=== PATIENT | male | born 1945 | race Caucasian/White ===

== ENCOUNTER → 2019-04-21 12:30 | Outpatient (BNVA) | payer MEDICARE, BC, SELFPAY | PROVIDERS: Family Provider Family Medicine; PCP Family Medicine; Visit Provider Nurse Practitioner Family | DX: I10 Essential (primary) hypertension (principal); E55.9 Vitamin D deficiency, unspecified | CPT/HCPCS: 80053; 80061; 82306; 85025 ==

== ENCOUNTER 2020-12-27 06:00 | Outpatient (RCR) | payer MEDICARE, BC, SELFPAY | END 2020-12-29 23:59 | disposition home or self-care (01) | LOC: TPT 06:00 | PROVIDERS: Family Provider Family Medicine; PCP Family Medicine; Referring Provider Nurse Practitioner Family; Visit Provider Nurse Practitioner Family | DX: R29.6 Repeated falls (principal) | CPT/HCPCS: 97110; 97162 ==

== ENCOUNTER 2020-12-30 06:00 | Outpatient (RCR) | payer MEDICARE, BC, SELFPAY | END 2021-01-29 23:59 | disposition home or self-care (01) | LOC: TPT 06:00 | PROVIDERS: PCP Family Medicine; Referring Provider Nurse Practitioner Family; Visit Provider Nurse Practitioner Family | DX: R29.6 Repeated falls (principal) | CPT/HCPCS: 97110 ==

== ENCOUNTER 2021-01-12 10:32 | Outpatient (CLI) | payer MEDICARE, BC, SELFPAY ==
--- NOTE | 2021-01-12 10:40 | CT_ITS ---
WS: [id number] CT HEAD TECHNIQUE: Noncontrast and contrast-enhanced CT of the head. CLINICAL INFORMATION: BALANCE DISORDER COMPARISON: None. DLP: 2116.[address] scans at [facility] use at least one of these dose optimization techniques: automated e xposure control; mA and/or kV adjustment per patient size (includes targeted exams where dose is matc hed to clinical indication); or iterative reconstruction. FINDINGS: No evidence of intracranial hemorrhage or mass effect. Moderate small vessel changes with moderate pa renchymal volume loss. Intracranial vascular calcification. No extra-axial fluid collections. No evid ence of mass or mass effect. No abnormal intracranial enhancement. Paranasal sinuses and mastoid air cells are well aerated. CT/CT head wo/w con [id number] IMPRESSION: 1. No evidence of intracranial hemorrhage or mass effect. 2. No abnormal intracranial enhancement. 3. Moderate small vessel changes with moderate parenchymal volume loss. 4. Intracranial vascular calcification. 5. Paranasal sinuses and mastoid air cells are well aerated. 6. No other significant findings.
[2021-01-12] MEDS: iohexol 300 mg/mL 100 mL Btl IV (10:58)
== END 2021-01-12 10:33 | disposition home or self-care (01) ==
PROVIDERS: PCP Nurse Practitioner Family; Visit Provider Nurse Practitioner Family
DX: R26.89 Other abnormalities of gait and mobility (principal)
CPT/HCPCS: 70470; Q9967

== ENCOUNTER 2021-01-30 06:00 | Outpatient (RCR) | payer MEDICARE, BC, SELFPAY | END 2021-02-28 23:59 | disposition home or self-care (01) | LOC: TPT 06:00 | PROVIDERS: PCP Nurse Practitioner Family; Visit Provider Nurse Practitioner Family | DX: R29.6 Repeated falls (principal) | CPT/HCPCS: 97110; 97164 ==

== ENCOUNTER 2021-03-01 06:00 | Outpatient (RCR) | payer MEDICARE, BC, SELFPAY | END 2021-03-22 23:59 | disposition home or self-care (01) | LOC: TPT 06:00 | PROVIDERS: PCP Nurse Practitioner Family; Visit Provider Nurse Practitioner Family | DX: R29.6 Repeated falls (principal) | CPT/HCPCS: 97110; 97164 ==

== ENCOUNTER 2021-10-11 06:00 | Outpatient (RCR) | payer MEDICARE, SELFPAY | END 2021-10-29 23:59 | disposition home or self-care (01) | LOC: TPT 06:00 | PROVIDERS: PCP Nurse Practitioner Family; Referring Provider Nurse Practitioner Family; Visit Provider Nurse Practitioner Family | DX: R42 Dizziness and giddiness (principal); R26.89 Other abnormalities of gait and mobility | CPT/HCPCS: 97110; 97163 ==

== ENCOUNTER → 2021-10-20 15:09 | Outpatient (BNVA) | payer MEDICARE, BC, SELFPAY | PROVIDERS: PCP Nurse Practitioner Family; Visit Provider Nurse Practitioner Family | DX: I96 Gangrene, not elsewhere classified (principal); L98.492 Non-pressure chronic ulcer of skin of other sites with fat layer exposed | CPT/HCPCS: 11042; 11045; 99203 ==

== ENCOUNTER → 2021-10-27 13:57 | Outpatient (BNVA) | payer MEDICARE, BC, SELFPAY | PROVIDERS: PCP Nurse Practitioner Family; Visit Provider Nurse Practitioner Family | DX: I96 Gangrene, not elsewhere classified (principal); L98.492 Non-pressure chronic ulcer of skin of other sites with fat layer exposed | CPT/HCPCS: 11042 ==

== ENCOUNTER 2021-10-30 06:00 | Outpatient (RCR) | payer MEDICARE, BC, SELFPAY | END 2021-11-29 23:59 | disposition home or self-care (01) | LOC: TPT 06:00 | PROVIDERS: PCP Nurse Practitioner Family; Referring Provider Nurse Practitioner Family; Visit Provider Nurse Practitioner Family | DX: R42 Dizziness and giddiness (principal) | CPT/HCPCS: 97110; 97116 ==

== ENCOUNTER → 2021-11-03 10:27 | Outpatient (BNVA) | payer MEDICARE, SELFPAY | PROVIDERS: PCP Nurse Practitioner Family; Visit Provider Nurse Practitioner Family | DX: I96 Gangrene, not elsewhere classified (principal); L98.492 Non-pressure chronic ulcer of skin of other sites with fat layer exposed | CPT/HCPCS: 11042 ==

== ENCOUNTER → 2021-11-10 09:55 | Outpatient (BNVA) | payer MEDICARE, SELFPAY | PROVIDERS: PCP Nurse Practitioner Family; Visit Provider Nurse Practitioner Family | DX: I96 Gangrene, not elsewhere classified (principal); L98.492 Non-pressure chronic ulcer of skin of other sites with fat layer exposed | CPT/HCPCS: 11042 ==

== ENCOUNTER 2021-11-17 10:08 | Inpatient (IN) | payer MEDICARE, BC, SELFPAY ==
[2021-11-17] VITALS (86 sets, daily range): BP systolic 192–220; BP diastolic 96–122; PULSE 37–76; RESP 12–27; TEMP 36.6–36.9; O2SAT 82–98; BMI 32.1
--- NOTE | 2021-11-17 10:10 | ED_ITS ---
HPI - Weakness General: Chief complaint: Weakness Stated complaint: BRADYCARDIA/ WEAKNESS Time Seen by Provider: 11/17/21 10:09 History of Present Illness: Mr. Hernandez is a 76-year-old gentleman with significant past medical history of hypertension, hyperlipidemia presented to the emergency department due to recurrent falls. He reports onset of symptoms without known specific provoking factor approximately 1 week ago. He notes exertional syncope though this is often not preceded by prodrome. He endorses approximately 40 falls with generalized aches and pains. Overall course of symptoms has worsened. Intensity severe. Denies frequent falls in the past. No other specific changes in health, exacerbating, or alleviating factors identified. Onset (ago): week(s) Duration: progressively worsening Location: generalized Severity: severe Exacerbating factors: exertion Review of Systems General: Reports: 10 or more systems reviewed and unremarkable except in HPI and below PFSH ED PFSH: Medical History (Updated 11/17/21 @ 14:13 by Jovon White MD) Depressed Hyperlipemia Hypertension Hypokalemia Rosacea Seasonal allergies Vitamin D deficiency Surgical History (Updated 11/17/21 @ 14:05 by Jovon White MD) No pertinent past surgical history Family History (Updated 11/17/21 @ 14:05 by Jovon White MD) Other No significant family history Social History (Updated 11/17/21 @ 14:06 by Jovon White MD) Smoking and tobacco status: former smoker Quit status (tobacco): has quit using tobacco Former quit date comment: 40 years ago Alcohol intake: current Alcohol type: hard liquor Lives independently: Yes Household members: none Marital status: Marital status details: recently moved to a group home Physical Exam Const: COMMON NORMALS: alert GENERAL APPEARANCE: cooperative and well developed HENMT: COMMON NORMALS: normocephalic and atraumatic HEAD & SCALP: normocephalic and atraumatic THROAT: posterior oropharynx normal OTHER: No zavala signs or raccoon eyes. No hemotympanum. No otorrhea or rhinorrhea. Jaw alignment normal. Dentition baseline. No obvious bony step-offs. No septal hematoma. No evidence of ocular entrapment. Eye: COMMON NORMALS: conjunctivae normal CONJUNCTIVA: Yes conjunctivae normal SCLERA: sclerae normal Neck/C-Spine: COMMON NORMALS: supple GENERAL: Yes trachea midline Resp: COMMON NORMALS: normal respiratory effort and clear to auscultation bilaterally EFFORT & INSPECTION: Yes able to speak in complete sentences AUSCULTATION: clear to auscultation bilaterally Cardio: RATE: bradycardic RHYTHM: abnormal rhythm irregularly irregular GI: COMMON NORMALS: Soft to palpation PALPATION: Yes Soft to palpation and No Tenderness to palpation present (GI) Extremity: GENERAL: Yes normal exam except as noted and No edema Neuro: COMMON NORMALS: moves all extremities SENSORIUM/ORIENTATION: Yes alert and No Orientation impaired Psych: COMMON NORMALS: mental status grossly normal and Normal thought process present THOUGHT PROCESS: Normal thought process present Course ED course: - Patient was seen and evaluated by me at bedside - Patient placed on cardiac monitors, IV access obtained - Initial evaluation notable for exam as above. Head to toe exam performed. - Labs and xrays personally interpreted by me. EKG shows atrial fibrillation with bradycardia and occasional PVCs, no STEMI. - Labs notable for trace leukocytosis, hemoconcentration. Metabolic panel with some evidence of dehydration. Hypomagnesemia and hypokalemia noted with replenishment ordered. Negative delta troponin. BNP elevated. TSH elevated with normal free T4. No COVID. - Imaging notable for no lobar consolidation or pneumothorax. Head CT with no intracranial hemorrhage or mass. CT neck notable for hairline C2 fracture, patient is neurosensory intact on exam. -Discussed with orthopedic spine physician, patient placed in [place] J collar af ter temporary c-collar - Upon serial reexamination after treatment the patient was similar - Based on patient history, evaluation, and testing as interpreted the most likely cause of the patient's condition is recurrent syncope which may be related to bradycardia - The results of ED evaluation were discussed with the patient including plan for admission due to requirement for level of care not available if discharged to prevent significant worsening/deterioration. - Admitting service was contacted and Dr White with the hospitalist service agreed to admit the patient - Patient was admitted without further deterioration or significant events. Note: Click bubbles or prepopulated cardona in note writing are used for assistance with data collection and billing and are inherently more limited than narrative and other text portions of this note. Please use narrative for additional clini zak history and defer to narrative/free test for any case of contradictory information. If information appears in only free text or click bubble it should be considered present or absent as reported. Please contact note abstract writer for clarifications of clinical information or contradictory information. MDM is a brief summary, contradictory or erroneous seeming information should be clarified and full note should be reviewed. Vital Signs: Vital signs: Vital Signs Temperature 98.3 F 11/19/21 16:45 Pulse Rate 56 L 11/19/21 16:45 Respiratory Rate 9 L 11/19/21 16:45 Blood Pressure 178/109 11/19/21 16:45 Pulse Oximetry 94 11/19/21 16:45 Oxygen Delivery Me thod 11/19/21 15:46 MDM - Weakness Medical Decision Making 76-year-old gentleman presenting with recurrent falls. Exact etiology is somewhat unclear likely related to atrial fibrillation with bradycardia and exertional/positional recurrent syncope. Hairline C2 fracture identified and patient placed in [place] J collar. Admitted for further management. Medical Records I reviewed the patient's medical records. Lab Data I reviewed the patient's lab results. : 11/19/21 04:49 11/19/21 04:49 Radiology Impressions Cervical Spine CT 11/17/21 10:26 IMPRESSION: 1. Apparent transverse hairline fracture the base of the C2 vertebral body. 2. Osteopenia and osteoarthritis ADDENDUM: 11/17/21 1214 Findings were discussed with Houston Martino at 11/17/2021 12:12 PM CDT. Chest X-Ray 11/17/21 10:26 IMPRESSION: 1. No acute findings. 2. Low lung volumes Head CT 11/17/21 10:26 IMPRESSION: 1. No acute intracranial abnormality. 2. Cerebral atrophic changes and ventriculomegaly appropriate for age Chest CTA 11/17/21 14:12 IMPRESSION: 1. Negative for pulmonary embolism. 2. Left lower lobe pleural effusion 3. Multiple subcentimeter mediastinal lymph nodes 4. Otherwise negative examination Laboratory Results WBC 10.2 10^3/uL (4.0-10.0) H 11/17/21 10:28 RBC 4.90 10^6/uL (4.1-5.3) 11/17/21 10:28 Hgb 16.3 g/dL (11.7-16.6) 11/17/21 10:28 Hct 48.7 % (42.0-52.0) 11/17/21 10:28 MCV 99.4 fl (80-94) H 11/17/21 10:28 MCH 33.3 pg (28.0-34.0) 11/17/21 10:28 MCHC 33.5 g/dL (30.0-36.0) 11/17/21 10:28 RDW 14.2 % (12.1-15.1) 11/17/21 10:28 Plt Count 215 10^3/cmm (130-400) 11/17/21 10:28 MPV 10.7 fL (7.4-10.4) H 11/17/21 10:28 Neut % (Auto) 76.7 % 11/17/21 10:28 Lymph % (Auto) 12.1 % 11/17/21 10:28 [place] % (Auto) 8.1 % 11/17/21 10:28 Eos % (Auto) 1.4 % 11/17/21 10:28 Baso % (Auto) 1.5 % 11/17/21 10:28 Neut # (Auto) 7.82 10^3/uL (1.8-7.7) H 11/17/21 10:28 Lymph # (Auto) 1.2 10^3/uL (0.8-4.8) 11/17/21 10:28 [place] # (Auto) 0.8 10^3/uL (0.2-0.9) 11/17/21 10:28 Eos # (Auto) 0.1 10^3/uL (0.0-0.8) 11/17/21 10:28 Baso # (Auto) 0.2 10^3/uL (0.0-0.1) H 11/17/21 10:28 Nucleated RBC % (auto) 0 % 11/17/21 10:28 Nucleated RBCs # 0.0 /100WBC 11/17/21 10:28 D-Dimer 2.20 ug/mIFEU (0-0.59) H 11/17/21 10:28 Sodium 137 mmol/L (136-145) 11/17/21 10:28 Potassium 3.3 mmol/L (3.5-5.1) L 11/17/21 10:28 Chloride 96 mmol/L (98-107) L 11/17/21 10:28 Carbon Dioxide 27 mmol/L (22-29) 11/17/21 10:28 Anion Gap 17.3 (5-19) 11/17/21 10:28 BUN 9 mg/dL (8-23) 11/17/21 10:28 Creatinine 0.7 mg/dL (0.7-1.2) 11/17/21 10:28 GFR Calculation Not Reportable 11/17/21 10:28 Glucose 88 mg/dL (65-115) 11/17/21 10:28 Calculated Osmolality 282 mOsm/kg (285-295) L 11/17/21 10:28 Lactate 1.6 mmol/L (0.5-2.2) 11/17/21 10:28 Calcium 8.8 mg/dL (8.5-10.5) 11/17/21 10:28 Magnesium 1.5 mg/dL (1.7-2.3) L 11/17/21 10:28 Total Bilirubin 1.3 mg/dL (0.15-1.2) H 11/17/21 10:28 AST 22 U/L (0-40) 11/17/21 10:28 ALT 12 U/L (0-41) 11/17/21 10:28 Alkaline Phosphatase 100 U/L (40-130) 11/17/21 10:28 Troponin T Baseline 37 ng/L (0-15) H 11/17/21 10:43 Troponin T 120 Minute 35.05 ng/L (0-15) H 11/17/21 12:38 Delta Troponin T -1.95 ABS# (0-10) L 11/17/21 12:38 Troponin T Hi Sens 6Hr 41.42 ng/L (0-15) H 11/17/21 16:58 Troponin T Hi Sens 6Hr Delta 4.42 ng/L (0-12) 11/17/21 16:58 C-Reactive Protein 8.7 mg/L (0.0-4.9) H 11/17/21 10:28 NT-Pro-B Natriuret Pep 7738 pg/mL (0-450) H 11/17/21 10:28 Total Protein 7.1 g/dL (6.6-8.7) 11/17/21 10:28 Albumin 3.5 g/dL (3.5-5.2) 11/17/21 10:28 Globulin 3.6 g/dL (1.3-4.6) 11/17/21 10:28 Procalcitonin 0.05 ng/mL (0-0.5) 11/17/21 10:28 TSH 4.88 uIU/mL (0.27-4.20) H 11/17/21 10:28 Free T4 0.90 ng/dL (0.82-1.77) 11/17/21 10:28 Discharge Plan Discharge Patient Disposition: Admitted As Inpatient Admit Provider: Jovon White Clinical Impression: Recurrent syncope, Atrial fibrillation, new onset, Bradyarrhythmia, Falls, C2 cervical fracture Condition: Stable Discharge Diet: Cardiac Discharge Activity: As per PT/OT instructions Coding Level of Care Code ED 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
--- NOTE | 2021-11-17 10:26 | CTR_ITS ---
PROCEDURE INFORMATION: Exam: CT Cervical Spine Without Contrast Exam date and time: 11/17/2021 11:32 AM Age: 76 years old Clinical indication: Other: Syncope TECHNIQUE: Imaging protocol: Computed tomography of the cervical spine without contrast. Radiation optimization: All CT scans at this facility use at least one of these dose optimization techniques: automated exposure control; mA and/or kV adjustment per patient size (includes targeted exams where dose is matched to clinical indication); or iterative reconstruction. COMPARISON: CT head wo con* [id number] 11/17/2021 11:29 AM RADIATION DOSE METRICS: Total DLP (mGy-cm): 226.47 FINDINGS: Bones/joints: Osteopenia and osteoarthritis is seen. A linear lucency is seen a traversing the base of the C2 vertebral body on coronal view. This finding is not visible on axial \views. This finding is faintly visible on the sagittal view. This may reflect a hairline fracture of indeterminate age. No acute fracture. Normal alignment. Discs/Spinal canal/Neural foramina: No significant disc protrusion. No severe spinal canal stenosis. No significant neural foraminal narrowing. Lungs: Lung apices are normal. Soft tissues: Unremarkable. CT/CT cervical spin wo con* [id number] IMPRESSION: 1. Apparent transverse hairline fracture the base of the C2 vertebral body. 2. Osteopenia and osteoarthritis
--- NOTE | 2021-11-17 10:26 | XRR_ITS ---
PROCEDURE INFORMATION: Exam: XR Chest Exam date and time: 11/17/2021 10:34 AM Age: 76 years old Clinical indication: Patient HX: Coughing x 1 week; Additional info: Syncope, bradycardia TECHNIQUE: Imaging protocol: Radiologic exam of the chest. Views: 1 view. COMPARISON: CR Chest 2 views* [id number] 08/23/2017 3:29 PM FINDINGS: Lungs: Low lung volumes seen. The lungs are otherwise clear. No consolidation. Pleural spaces: Elevated right hemidiaphragm No pleural effusion. No pneumothorax. Heart/Mediastinum: Unremarkable. No cardiomegaly. Bones/joints: Unremarkable. Other findings: There has been no interval changes comparing to prior examination XR/XR chest 1V portable [id number] IMPRESSION: 1. No acute findings. 2. Low lung volumes
--- NOTE | 2021-11-17 10:26 | CTR_ITS ---
PROCEDURE INFORMATION: Exam: CT Head Without Contrast Exam date and time: 11/17/2021 11:29 AM Age: 76 years old Clinical indication: Syncope and collapse TECHNIQUE: Imaging protocol: Computed tomography of the head without contrast. Radiation optimization: All CT scans at this facility use at least one of these dose optimization techniques: automated exposure control; mA and/or kV adjustment per patient size (includes targeted exams where dose is matched to clinical indication); or iterative reconstruction. COMPARISON: CT head wo/w con [id number] 01/12/2021 10:55 AM RADIATION DOSE METRICS: Total DLP (mGy-cm): 1139.58 FINDINGS: Brain: Cerebral volume loss appropriate for age. No hemorrhage. Unremarkable white matter. No mass effect. Cerebral ventricles: Moderate ventriculomegaly. Paranasal sinuses: Visualized sinuses are unremarkable. No fluid levels. Mastoid air cells: Visualized mastoid air cells are well aerated. Bones/joints: Unremarkable. No acute fracture. Soft tissues: Unremarkable. Other findings: Comparison to prior examination similar findings seen CT/CT head wo con* [id number] IMPRESSION: 1. No acute intracranial abnormality. 2. Cerebral atrophic changes and ventriculomegaly appropriate for age
--- NOTE | 2021-11-17 10:28 | ECG_ITS ---
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 Measurements Intervals [place] Rate: 48 P: [place]: QRS: -58 QRSD: 134 T: 55 QT: 499 QTc: 449 Interpretive Statements ATRIAL FIBRILLATION WITH SLOW VENTRICULAR RESPONSE WITH ABERRANT CONDUCTION OR VENTRICULAR PREMATURE COMPLEXES RIGHT BUNDLE BRANCH BLOCK [120+ ms QRS DURATION, UPRIGHT V1, 40+ ms S IN I/aVL/V4/V5/V6] VOLTAGE CRITERIA FOR LVH [MEETS CRITERIA IN ONE OF: R(aVL), S(V1), R(V5), R(V5/V6)+S(V1)] INFERIOR MYOCARDIAL INFARCTION , PROBABLY OLD [40+ ms Q WAVE AND/OR ST/T ABNORMALITY IN II/aVF] MODERATE T-WAVE ABNORMALITY, CONSIDER LATERAL ISCHEMIA [-0.1+ mV T-WAVE IN I/aVL/V5/V6] No previous ECG available for comparison Electronically Signed On 11-17-2021 17:46:12 CDT by Kenny Parkinson M.D. [id number]
[2021-11-17 10:37] LABS: Basophils # 0.2 10^3/uL (0.0-0.1); Basophils % 1.5 %; Eosinophils # 0.1 10^3/uL (0.0-0.8); Eosinophils % 1.4 %; Hematocrit 48.7 % (42.0-52.0); Hemoglobin 16.3 g/dL (11.7-16.6); Lymphocytes # 1.2 10^3/uL (0.8-4.8); Lymphocytes % 12.1 %; Mean Corpuscular HGB Conc 33.5 g/dL (30.0-36.0); Mean Corpuscular Hemoglobin 33.3 pg (28.0-34.0); Mean Corpuscular Volume 99.4 fl (80-94); Mean Platelet Volume 10.7 fL (7.4-10.4); Monocytes # 0.8 10^3/uL (0.2-0.9); Monocytes % 8.1 %; Neutrophils # 7.82 10^3/uL (1.8-7.7); Neutrophils % 76.7 %; Nucleated Red Blood Cells % 0 %; Platelet Count 215 10^3/cmm (130-400); Red Cell Distribution Width 14.2 % (12.1-15.1); White Blood Count 10.2 10^3/uL (4.0-10.0)
[2021-11-17 10:54] LABS: Lactate (Lactic Acid level) 1.6 mmol/L (0.5-2.2)
[2021-11-17 11:10] LABS: Troponin(5th) Baseline 37 ng/L (0-15)
[2021-11-17 11:18] LABS: NT Pro B Type Natriuretic Pept 7738 pg/mL (0-450); Procalcitonin 0.05 ng/mL (0-0.5); Thyroid Stimulating Hormone 4.88 uIU/mL (0.27-4.20)
[2021-11-17 11:29] LABS: Alanine Aminotransferase 12 U/L (0-41); Albumin Level 3.5 g/dL (3.5-5.2); Alkaline Phosphatase 100 U/L (40-130); Blood Urea Nitrogen 9 mg/dL (8-23); C Reactive Protein 8.7 mg/L (0.0-4.9); Calcium 8.8 mg/dL (8.5-10.5); Carbon Dioxide 27 mmol/L (22-29); Chloride 96 mmol/L (98-107); Globulin 3.6 g/dL (1.3-4.6); Glucose 88 mg/dL (65-115); Magnesium 1.5 mg/dL (1.7-2.3); Osmolality Calculated 282 mOsm/kg (285-295); Sodium 137 mmol/L (136-145); Total Bilirubin 1.3 mg/dL (0.15-1.2); Total Protein 7.1 g/dL (6.6-8.7)
[2021-11-17 11:31] LABS: Anion Gap 17.3 (5-19); Aspartate Amino Transferase 22 U/L (0-40); Potassium 3.3 mmol/L (3.5-5.1)
--- NOTE | 2021-11-17 12:36 | ECG_ITS ---
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 Measurements Intervals [place] Rate: 44 P: SD: QRS: -60 QRSD: 158 T: 44 QT: 516 QTc: 443 Interpretive Statements ATRIAL FIBRILLATION WITH SLOW VENTRICULAR RESPONSE RIGHT BUNDLE BRANCH BLOCK [120+ ms QRS DURATION, UPRIGHT V1, 40+ ms S IN I/aVL/V4/V5/V6] LEFT ANTERIOR FASCICULAR BLOCK [QRS AXIS <= -45, QR IN I, RS IN II] VOLTAGE CRITERIA FOR LVH [MEETS CRITERIA IN ONE OF: R(aVL), S(V1), R(V5), R(V5/V6)+S(V1)] INFERIOR MYOCARDIAL INFARCTION , PROBABLY OLD [40+ ms Q WAVE AND/OR ST/T ABNORMALITY IN II/aVF] Compared to ECG 11/17/2021 10:17:16 Left anterior fascicular block now present Aberrant conduction of supraventricular beat(s) no longer present Ventricular premature complex(es) no longer present T-wave abnormality no longer present Possible ischemia no longer present Myocardial infarct finding still present Electronically Signed On 11-17-2021 17:49:35 CDT by Kenny Parkinson M.D. [id number]
--- NOTE | 2021-11-17 12:38 | PC.PHAR ---
pt states he takes care of his own medications-pt states he is unsure of the names of all his medications-pt states he takes a fluid pill rx filled 07/13/2020 90d/s for indapamide 2.5mg qam-medication is not on med list from [facility] -pt states he uses flonase daily rx last filled 08/08/21-labetalol 300mg daily last filled 08/01/21 90d/s-lisinopril 10mg qam filled 10/23/21 30d/s-montelukast 10mg daily filled 09/11/21 90d/s-kcl 20meq take 10meq daily filled 09/13/21 30d/s-simvastatin 40mg daily filled 07/26/21 90d/s-venlafaxine er 75mg daily filled 10/23/21 90d/s-flexeril 5mg bid prn filled 10/10/21 10d/s-clartin 10mg daily was on pts med list from [facility]-med list from [facility] has vitamin d 54866 units q7d pt states he doesnt take a weekly pill-pt states he takes 8 pill a day-medications entered are meds that have been filled at [facility] and medications on the pts med list from [facility]
[2021-11-17] MEDS: magnesium sulfate premix 4 GM/100 ML PREMIX IV (13:14)
[2021-11-17] MEDS: potassium chloride ER 20 mEq Tablet 40 MEQ PO (13:14)
[2021-11-17 13:17] LABS: Troponin 5 2HR 35.05 ng/L (0-15)
[2021-11-17 13:18] LABS: Troponin 5 2HR Delta -1.95 ABS# (0-10)
--- NOTE | 2021-11-17 13:53 | USCV_ITS ---
Amos Hernandez Age: 76 Gender: M : 1945 Exam Date: 11/17/2021 14:33 Ordering Phys: Jovon White MD Technologist: AMANDA Exam Location: [facility] [place] Indication: SYNCOPE, BRADYCARDIA BP: / HR: 40 Rhythm: Sinus Technical Quality: Technically difficult study MEASUREMENTS (Male / Female) Normal Values 2D ECHO LV Diastolic Diameter PLAX 5.7 cm 4.2 - 5.9 / 3.9 - 5.3 cm LV Systolic Diameter PLAX 4.0 cm IVS Diastolic Thickness 1.3 cm 0.6 - 1.0 / 0.6 - 0.9 cm IVS Systolic Thickness 2.6 cm LVPW Diastolic Thickness 1.9 cm 0.6 - 1.0 / 0.6 - 0.9 cm LVPW Systolic Thickness 2.3 cm LVOT Diameter 2.0 cm LV Ejection Fraction 2D Teich 54.5 % LV Ejection Fraction MOD 2C 40.6 % LV Ejection Fraction 2C AL 41.0 % LA Diameter 4.6 cm LA Width 3.4 cm LA Height 6.5 cm RA Width 4.4 cm RA Height 4.9 cm Aorta at Sinotubular Diameter 2.8 cm M-MODE Aortic Annulus Diameter 4.2 cm LA Ao Ratio MM 1.0 MV E Point Septal Separation 0.9 cm DOPPLER AV Peak Velocity 179.0 cm/s LVOT Peak Velocity 100.0 cm/s AV Area Cont Eq vti 1.8 cm squared AV Area Cont Eq pk 1.7 cm squared MV Peak Velocity 92.0 cm/s MV Area PHT 3.6 cm squared Mitral E to A Ratio 1.1 MV E' Velocity 36.5 cm/s Mitral E to MV E' Ratio 6.5 Mitral E to LV E' Lateral Ratio 5.5 Mitral E to LV E' Septal Ratio 8.0 TR Peak Velocity 221.2 cm/s TR Peak Gradient 19.6 mmHg TR Mean Velocity 232.1 cm/s TR Mean Gradient 21.3 mmHg TR Velocity Time Integral 87.0 cm TV Peak E Velocity 35.0 cm/s Right Atrial Pressure 8.0 mmHg Pulmonary Artery Systolic Pressu 27.6 mmHg PV Peak Velocity 153.0 cm/s RV Acceleration Time 0.2 s RV Ejection Time 0.3 s RV AcT/ET 0.5 FINDINGS Left Ventricle Normal left ventricular size, systolic function and wall thickness, with no diagnostic regional wall motion abnormalities. Left ventricular ejection fraction is estimated at 55 %. Right Ventricle Normal right ventricular size and systolic function. Right ventricular systolic pressure 21 mmHg. Right Atrium Normal right atrial size. Left Atrium Normal left atrial size. Mitral Valve Structurally normal mitral valve. No mitral valve stenosis. No significant mitral valve regurgitation. Aortic Valve Structurally normal trileaflet aortic valve. No aortic valve stenosis. Trace aortic valve regurgitation. Tricuspid Valve Structurally normal tricuspid valve. No tricuspid valve stenosis. Trace tricuspid valve regurgitation. Pulmonic Valve Pulmonic valve not well visualized. No pulmonary valve stenosis. Trace pulmonary valve regurgitation. Pericardium No pericardial effusion. Aorta Normal sized aortic root. IVC Inferior vena cava not visualized. CONCLUSIONS 1. This is a technically difficult study. 2. Normal left ventricular size, systolic function and wall thickness, with no diagnostic regional wall motion abnormalities. Left ventricular ejection fraction is estimated at 55 %. 3. Trace aortic valve regurgitation. 4. No prior similar studies to compare. Karla Singleton MD (Electronically Signed) Final Date: 17 November 2021 18:26 S
--- NOTE | 2021-11-17 14:02 | P.HP_ITS ---
Providers/Chief Complaint Primary Care Provider: Vernell Siegel APN Chief Complaint: BRADYCARDIA/ WEAKNESS History of Present Illness Pleasant 76-year-old gentleman recently living alone after his has moved to residential, with history of HTN, HLD, alcohol intake 2-3 drinks in a day, reports history of intermittent fainting episodes for close to about a year, but recently worse, has been generally weak, and has fainted possibly 8-9 times, but feels like 49 in the last year. His son mentions that episodes may happen more often at night when he tries to get up from bed possibly to urinate. He does state that he gets lightheaded trying to get up. He denies any chest pain or pressure. He is not short of breath. He has not had any fevers chills, cough or other respiratory issues. Denies any history of heart disease, including no history of atrial fibrillation, or known history of CAD. He was a former smoker but quit 40 years ago. Denies any recent tick bites or any other unusual incidents. In ER he is noted hypertensive, blood pressure up to 214/122, currently 207/101. Noted bradycardic, heart rates occasionally as low as 35-39 bpm at rest, otherwise 40s-50s. Noted atrial fibrillation with slow ventricular response on EKG. Aberrant conduction. LVH. Potassium 3.3. Magnesium 1.5. TSH 4.88, but free T4 0.9. Troponin 37 baseline, 35.05 at 2 hours. NT proBNP 7738. Chest x- ray with low lung volumes, no acute findings. Head CT with atrophic changes and ventriculomegaly appropriate for age. C-spine CT with transverse hairline fracture at the base of the C2 vertebral body. As per discussion with orthopedics [place] collar is placed, and he will be following up in outpatient office. Review of Systems Const: Denies: fever(s), chills, body aches or malaise Eyes: Denies: change in vision, eye discomfort or eye redness ENMT: Denies: throat pain, oral sores or ear or mastoid pain Card: Denies: chest pain, edema, pre-syncope or dyspnea on exertion Resp: Denies: dyspnea, productive cough, change in phlegm color or hemoptysis GI: Denies: abdominal pain, nausea, vomiting, diarrhea, constipation, hematochezia or melena : Denies: flank pain, difficulty urinating, urinary frequency or hematuria Musc: Denies: back pain, joint swelling or joint redness Skin/Breast: Denies: rash or new lesions Neuro: Denies: headache(s), numbness in extremities, weakness in extremities, dizziness, confusion or seizure-like activity Endo: Denies: polyuria or polydipsia [place]/Lymph: Denies: easy bleeding or tender lymph nodes All/Imm: Denies: urticaria or tongue swelling Medications/Allergies Home Medications Medication Instructions Recorded Confirmed Last Taken Type labetalol 300 mg tablet 300 mg PO DAILY 90 days #90 tabs 04/27/19 11/17/21 Unknown Rx cyclobenzaprine 5 mg tablet 5 mg PO BID PRN Muscle Spasm 11/17/21 11/17/21 Unknown History fluticasone propionate 50 2 spray intranasal DAILY 11/17/21 11/17/21 Unknown History mcg/actuation nasal spray,suspension indapamide 2.5 mg tablet 2.5 mg PO QAM 11/17/21 11/17/21 Unknown History lisinopril 10 mg tablet 10 mg PO DAILY 11/17/21 11/17/21 Unknown History loratadine 10 mg tablet (Claritin) 10 mg PO DAILY 11/17/21 11/17/21 Unknown History montelukast 10 mg tablet 10 mg PO DAILY 11/17/21 11/17/21 Unknown History potassium chloride 20 mEq 10 meq PO DAILY 11/17/21 11/17/21 Unknown History tablet,extended release(part/cryst) (Klor-Con M) simvastatin 40 mg tablet (Zocor) 40 mg PO DAILY 11/17/21 11/17/21 Unknown History venlafaxine 75 mg capsule,extended 75 mg PO DAILY 11/17/21 11/17/21 Unknown H istory release 24 hr Allergies Allergy/AdvReac Type Severity Reaction Status Date / Time No Known Allergies Allergy Verified 04/21/19 12:26 PFSH Acute PFSH: Medical History (Updated 11/17/21 @ 14:13 by Jovon White MD) Depressed Hyperlipemia Hypertension Hypokalemia Rosacea Seasonal allergies Vitamin D deficiency Surgical History (Updated 11/17/21 @ 14:05 by Jovon White MD) No pertinent past surgical history Family History (Updated 11/17/21 @ 14:05 by Jovon White MD) Other No significant family history Social History (Updated 11/17/21 @ 14:06 by Jovon White MD) Smoking and tobacco status: former smoker Quit status (tobacco): has quit using tobacco Former quit date comment: 40 years ago Alcohol intake: current Alcohol type: hard liquor Alcohol use comment: 2-3 drinks/ day Substance/Drug Use: never Lives independently: Yes Household members: none Marital status: Marital status details: recently moved to a residential Vitals/I&O/Wt Last Vital Signs Temp 97.9 F 11/17/21 10:13 Pulse 76 11/17/21 13:55 Resp 21 H 11/17/21 13:55 BP 207/101 11/17/21 13:34 Pulse Ox 82 L 11/17/21 13:55 O2 Del Method 11/17/21 10:25 Weight last 48 hrs Weight 104.326 kg Physical Exam Narrative: Son accompanies him at bedside. Const: COMMON NORMALS: patient oriented x3 and alert GENERAL APPEARANCE: cooperative ORIENTATION/CONSCIOUSNESS: Yes awake HENMT: COMMON NORMALS: oropharynx normal Neck/C-Spine: COMMON NORMALS: no JVD OTHER: [place] collar Resp: COMMON NORMALS: normal respiratory effort and clear to auscultation bilaterally AUSCULTATION: clear to auscultation bilaterally Cardio: COMMON NORMALS: no JVD, regular rhythm, S1 normal heart sound present, S2 normal heart sound present and No murmurs present (Cardio) RHYTHM: regular rhythm HEART SOUNDS: S1 normal heart sound present and S2 normal heart sound present GI: COMMON NORMALS: Normal to inspection, nondistended, normoactive bowel sounds present, Soft to palpation and non-tender PALPATION: Yes Soft to palpation Extremity: COMMON NORMALS: no joint enlargement and no pedal edema Neuro: COMMON NORMALS: patient oriented x3 and moves all extremities SENSORIUM/ORIENTATION: Yes alert Skin: COMMON NORMALS: no rashes or lesions noted GENERAL SKIN EXAM: no rashes or lesions noted OTHER: Seborrheic keratoses Data : 11/17/21 10:28 11/17/21 10:28 A&P Assessment and plan (1) Recurrent syncope: Recurrent syncopal episodes, etiology of which is not entirely clear currently. He is noted to have bradycardia, RBBB, LAF, although heart rates mostly do stay in 4750s, but occasionally do drop down to 35-39. He does report some orthostatic symptoms with getting up, episodes also to appear to happen more at night. Noted to have new atrial fibrillation. Denies known past cardiac history. Additional assessment and management with TTE and as below. Orthostatics. Status: Acute (2) Atrial fibrillation with slow ventricular response: Bradycardia, occasionally as low as 35-39. Mostly 40s-50s. Hold labetalol. Received replacement for hypokalemia, hypomagnesemia. We will follow-up and replace as needed. Noted mild increase in TSH, but normal free T4. Not likely contributing, likely subclinical hypothyroidism. Complete troponin EKG series. He has been chest pain-free, although new onset atrial fibrillation, with cardiovascular risk factors, no prior work-up, will benefit from additional assessment by stress testing at some point. TTE. He is hypertensive, although this may be in response to bradycardia as discussed with him and his son. D-dimer is noted abnormal, with syncopal episodes will additionally assess CT PE protocol. Status: Acute (3) Atrial fibrillation, new onset: As above. Alcohol could be a trigger. As noted above, with new onset, with cardiovascular risk factors, no prior CAD work-up would benefit from additional nonurgent stress testing. Status: Acute (4) Falls: Accompanying syncopal episodes. As above. Status: Acute (5) C2 cervical fracture: [place] collar. Follow-up with orthopedics and office. Status: Acute (6) Hypertension: Labetalol was stopped. Continue lisinopril, indapamide. Cardiac diet monitor blood pressures. Status: Acute (7) Hypokalemia: Received replacement. Follow-up level. Replace hypomagnesemia. Status: Acute (8) Hypomagnesemia: Received replacement. Follow-up level. Status: Acute (9) Elevated TSH: He denies any other symptoms of hypothyroidism. Suspect subclinical hypothyroid. Not likely to be contributing to his symptoms. Status: Acute (10) Alcohol use: 2-3 alcoholic drinks daily, hard liquor. Certainly could contribute to development of new atrial relation. Encourage cessation. Monitor for withdrawal. Status: Acute (11) Elevated brain natriuretic peptide (BNP) level: 7738. Unclear etiology, although does not appear to have clear pulmonary issues on chest x-ray. D-dimer is abnormal, will additionally assess for possibility of PE with CTA. This may be secondary to new arrhythmia. Does not appear to be volume overloaded at this time. Assess TTE. Status: Acute (12) Elevated d-dimer: Additional assessment by CTA, duplex lower extremities. If no clots noted, may be secondary to atrial fibrillation. Status: Acute Plan HLD: Continue statin Possible nycturia as per son recently moved to [place], now living alone. Attestations Medical Necessity Statement*: Admission of over 2 midnights anticipated versus management of syncopal episodes, new atrial fibrillation, bradycardia. Coding Level of Care Code Acute Striper Machine for Jimmy Fwd Diagnoses Recurrent syncope R55 Atrial fibrillation with slow ventricular response I48.91 Atrial fibrillation, new onset I48.91 Falls W19.XXXA C2 cervical fracture S12.100A Hypertension I10 Hypokalemia E87.6 Hypomagnesemia E83.42 Elevated TSH R79.89 Alcohol use Z72.89 Elevated brain natriuretic peptide (BNP) level R79.89 Elevated d-dimer R79.89
--- NOTE | 2021-11-17 14:12 | USCV_ITS ---
Amos Hernandez Age: 76 Gender: M : 1945 Exam Date: 11/17/2021 14:20 Ordering Phys: Jovon White MD Technologist: AMANDA Exam Location: [facility] [place] Indication: ELEVATED D DIMER PROCEDURES: Venous duplex imaging was performed in bilateral lower extremities. The following venous structures were evaluated: common femoral vein, profunda vein, proximal portion of the greater saphenous vein, superficial femoral vein, and the popliteal vein. In addition, the posterior tibial and peroneal trunk were evaluated. Serial compression, augmentation maneuvers, and spectral Doppler flow evaluation were performed. FINDINGS: No evidence of DVT seen in any vessel visualized at this time. Examination was technically limited due to body habitus. CONCLUSIONS No evidence of right lower extremity DVT. No evidence of left lower extremity DVT. Vick Dhillon MD (Electronically Signed) Final Date: 17 November 2021 15:19 S
--- NOTE | 2021-11-17 14:12 | CTR_ITS ---
PROCEDURE INFORMATION: Exam: CTA Chest With Contrast Exam date and time: 11/17/2021 4:26 PM Age: 76 years old Clinical indication: Dyspnea; Additional info: Syncope, elev ddimer TECHNIQUE: Imaging protocol: Computed tomographic angiography of the chest with contrast. 3D rendering (Not supervised by radiologist): MIP and/or 3D reconstructed images were created by the technologist. Radiation optimization: All CT scans at this facility use at least one of these dose optimization techniques: automated exposure control; mA and/or kV adjustment per patient size (includes targeted exams where dose is matched to clinical indication); or iterative reconstruction. Contrast material: OMNI 350; Contrast volume: 95 ml; Contrast route: INTRAVENOUS (IV); COMPARISON: CR XR chest 1V portable [id number] 11/17/2021 10:34 AM RADIATION DOSE METRICS: Total DLP (mGy-cm): 522.27 FINDINGS: Pulmonary arteries: Normal. No pulmonary emboli. Aorta: Unremarkable. No aortic aneurysm. No aortic dissection. Lungs: Unremarkable. No consolidation. No masses. Pleural spaces: Unremarkable. No pneumothorax. Left lower lobe pleural effusion. Heart: Unremarkable. No cardiomegaly. No pericardial effusion. Lymph nodes: Subcentimeter mediastinal lymph nodes are seen.. Bones/joints: Unremarkable. No acute fracture. Soft tissues: Unremarkable. CT/CT angio chest PE protcl [id number] IMPRESSION: 1. Negative for pulmonary embolism. 2. Left lower lobe pleural effusion 3. Multiple subcentimeter mediastinal lymph nodes 4. Otherwise negative examination
[2021-11-17] MEDS: perflutren protein-a microsphr 0.22 mg/mL SDV 3 mL IV (15:16)
--- NOTE | 2021-11-17 16:37 | ECG_ITS ---
[facility] Test Date: 2021-11-17 Pat Name: Amos Hernandez Department: Room: Gender: Male Secretary Specialist: : 1945 Requested By: Houston Martino Order Number: [id number] Kwame MD: Kenny Parkinson M.D. Measurements Intervals [place] Rate: 51 P: MI: QRS: -53 QRSD: 144 T: 9 QT: 503 QTc: 467 Interpretive Statements ATRIAL FIBRILLATION WITH SLOW VENTRICULAR RESPONSE WITH ABERRANT CONDUCTION OR VENTRICULAR PREMATURE COMPLEXES RIGHT BUNDLE BRANCH BLOCK [120+ ms QRS DURATION, UPRIGHT V1, 40+ ms S IN I/aVL/V4/V5/V6] VOLTAGE CRITERIA FOR LVH [MEETS CRITERIA IN ONE OF: R(aVL), S(V1), R(V5), R(V5/V6)+S(V1)] INFERIOR MYOCARDIAL INFARCTION , OF INDETERMINATE AGE [40+ ms Q WAVE AND/OR ST/T ABNORMALITY IN II/aVF] Compared to ECG 11/17/2021 12:36:00 Ventricular premature complex(es) now present Aberrant conduction of supraventricular beat(s) now present Left anterior fascicular block no longer present Myocardial infarct finding still present Electronically Signed On 11-17-2021 17:48:46 CDT by Kenny Parkinson M.D. [id number]
[2021-11-17] MEDS: iohexol 350 mg/mL 100 mL Btl IV (16:38)
[2021-11-17] MEDS: hyDRALAzine 20 mg/mL INJ 1 mL 10 MG IVP ×2 (17:18→22:18)
[2021-11-17 17:27] LABS: Troponin 5 6HR 41.42 ng/L (0-15)
[2021-11-17 17:29] LABS: Troponin 5 6HR Delta 4.42 ng/L (0-12)
[2021-11-17] MEDS: heparin 5,000 unit/mL INJ 1 mL 5000 UNIT SUBCUT (19:56)
[2021-11-17 21:50] LABS: Adenovirus Not Detected (NOT DETECT); Chlamydia Pneumoniae Not Detected (NOT DETECT); Coronavirus 229E,HKU1,NL63,OC4 Not Detected (NOT DETECT); Human Metapneumovirus Not Detected (NOT DETECT); Human Rhinovirus/Enterovirus Not Detected (NOT DETECT); Influenza A Not Detected (NOT DETECT); Influenza A H1 Not Detected (NOT DETECT); Influenza A H1-2009 Not Detected (NOT DETECT); Influenza A H3 Not Detected (NOT DETECT); Influenza B Not Detected (NOT DETECT); Mycoplasma Pneumoniae Not Detected (NOT DETECT); Parainfluenza Virus Type 1 Not Detected (NOT DETECT); Parainfluenza Virus Type 2 Not Detected (NOT DETECT); Parainfluenza Virus Type 3 Not Detected (NOT DETECT); Parainfluenza Virus Type 4 Not Detected (NOT DETECT); Respiratory Syncytial Virus A Not Detected (NOT DETECT); Respiratory Syncytial Virus B Not Detected (NOT DETECT); SARS-COV-2 Not Detected (NOT DETECT)
[2021-11-17] MEDS: cyclobenzaprine 10 mg Tablet 5 MG PO (22:17)
--- NOTE | 2021-11-17 22:27 | PC.NURSE ---
Patient requesting something to help with sleep or remove c-collar. Instructed patient on extreme importance of c-collar. Informed Dr Escalona of patient's request. Received telephone order for hydroxyzine 25mg PO onetime for sleep tonight.
[2021-11-17] MEDS: hyDROXYzine 25 mg Capsule PO (23:02)
[2021-11-18] VITALS (11 sets, daily range): BP systolic 107–220; BP diastolic 71–96; PULSE 48–58; RESP 20–25; TEMP 36.6–36.8; O2SAT 94–96
[2021-11-18 05:14] LABS: Basophils # 0.1 10^3/uL (0.0-0.1); Basophils % 1.1 %; Eosinophils # 0.1 10^3/uL (0.0-0.8); Eosinophils % 1.2 %; Hematocrit 44.6 % (42.0-52.0); Hemoglobin 14.9 g/dL (11.7-16.6); Mean Corpuscular HGB Conc 33.4 g/dL (30.0-36.0); Mean Corpuscular Hemoglobin 33.5 pg (28.0-34.0); Mean Corpuscular Volume 100.2 fl (80-94); Mean Platelet Volume 10.8 fL (7.4-10.4); Monocytes # 0.8 10^3/uL (0.2-0.9); Monocytes % 8.6 %; Neutrophils # 7.62 10^3/uL (1.8-7.7); Neutrophils % 78.9 %; Nucleated Red Blood Cells % 0 %; Platelet Count 219 10^3/cmm (130-400); Red Blood Count 4.45 10^6/uL (4.1-5.3); Red Cell Distribution Width 14.5 % (12.1-15.1); White Blood Count 9.7 10^3/uL (4.0-10.0)
[2021-11-18 05:41] LABS: Alanine Aminotransferase 10 U/L (0-41); Albumin Level 3.5 g/dL (3.5-5.2); Alkaline Phosphatase 94 U/L (40-130); Anion Gap 17.4 (5-19); Aspartate Amino Transferase 18 U/L (0-40); Blood Urea Nitrogen 7 mg/dL (8-23); Calcium 8.9 mg/dL (8.5-10.5); Carbon Dioxide 26 mmol/L (22-29); Chloride 97 mmol/L (98-107); Globulin 2.5 g/dL (1.3-4.6); Glucose 72 mg/dL (65-115); Magnesium 2.1 mg/dL (1.7-2.3); Osmolality Calculated 281 mOsm/kg (285-295); Potassium 3.4 mmol/L (3.5-5.1); Sodium 137 mmol/L (136-145); Total Bilirubin 1.8 mg/dL (0.15-1.2)
[2021-11-18] MEDS: loratadine 10 mg Tablet PO (08:11)
[2021-11-18] MEDS: venlafaxine ER (24HR) 75 mg Capsule PO (08:11)
[2021-11-18] MEDS: heparin 5,000 unit/mL INJ 1 mL 5000 UNIT SUBCUT ×2 (08:11→20:10)
[2021-11-18] MEDS: hyDRALAzine 20 mg/mL INJ 1 mL 10 MG IVP (08:11)
[2021-11-18] MEDS: fluticasone nasal spray 16gm Btl 2 SPRAY INTRANASAL (08:11)
[2021-11-18] MEDS: atorvastatin 40 mg Tablet 20 MG PO (08:11)
[2021-11-18] MEDS: montelukast sodium 10 mg Tablet PO (08:11)
[2021-11-18] MEDS: potassium chloride ER 10 mEq Tablet PO (08:11)
[2021-11-18] MEDS: lisinopril 10 mg Tablet PO (08:11)
[2021-11-18] MEDS: potassium chloride ER 20 mEq Tablet PO (09:34)
--- NOTE | 2021-11-18 19:27 | PC.NURSE ---
Dr White present on the floor. Patient requesting something to help with sleep. Received verbal order for Trazodone 25mg at bedtime
[2021-11-18] MEDS: cyclobenzaprine 10 mg Tablet 5 MG PO (20:10)
[2021-11-18] MEDS: trazodone 50 mg Tablet 25 MG PO (20:10)
--- NOTE | 2021-11-18 21:19 | PM.PN ---
Subjective Subjective: He states he is feeling all right today. Denies chest pain or pressure. Has not had any episodes of syncope. He is not short of breath. Vitals/I&O/Wt Last Vital Signs Temp 98.1 F 11/18/21 20:00 Pulse 48 L 11/18/21 20:00 Resp 25 H 11/18/21 20:00 BP 164/77 11/18/21 20:00 Pulse Ox 94 11/18/21 20:00 O2 Del Method 11/18/21 16:00 11/18/21 11/18/21 11/18/21 06:59 14:59 22:59 Intake Total 1550 / 1890 600 / 600 240 / 840 Output Total 100 / 100 280 / 280 100 / 380 Balance 1450 / 1790 320 / 320 140 / 460 Weight last 48 hrs Weight 98.157 kg Weight 104.326 kg Physical Exam Const: COMMON NORMALS: patient oriented x3 and alert GENERAL APPEARANCE: cooperative ORIENTATION/CONSCIOUSNESS: Yes awake HENMT: COMMON NORMALS: oropharynx normal Neck/C-Spine: COMMON NORMALS: no JVD OTHER: [place] collar Resp: COMMON NORMALS: normal respiratory effort and clear to auscultation bilaterally AUSCULTATION: clear to auscultation bilaterally Cardio: COMMON NORMALS: no JVD, regular rhythm, S1 normal heart sound present, S2 normal heart sound present and No murmurs present (Cardio) RHYTHM: regular rhythm HEART SOUNDS: S1 normal heart sound present and S2 normal heart sound present GI: COMMON NORMALS: Normal to inspection, nondistended, normoactive bowel sounds present, Soft to palpation and non-tender PALPATION: Yes Soft to palpation Extremity: COMMON NORMALS: no joint enlargement and no pedal edema Neuro: COMMON NORMALS: patient oriented x3 and moves all extremities SENSORIUM/ORIENTATION: Yes alert Skin: COMMON NORMALS: no rashes or lesions noted GENERAL SKIN EXAM: no rashes or lesions noted OTHER: Seborrheic keratoses Data : 11/18/21 04:51 11/18/21 04:51 A&P Assessment and plan (1) Recurrent syncope: Bradycardia is actually better with holding labetalol, mostly in the 50s. He is severely orthostatic. Likely cause of his syncopal episodes. Perhaps not helped also by hydralazine he received as needed for elevated blood pressures. Unfortunately orthostasis going to be difficult to manage in the setting of otherwise elevated blood pressure. We will hold off any further hydralazine. Continue lisinopril. Reassess blood pressures. Reassess orthostatics again tomorrow. May benefit from monitor after discharge. Noted to have new atrial fibrillation. Denies known past cardiac history. TTE technically difficult study, with normal ejection fraction, no diagnostic R WMA. Trace AVR. PT eval. Status: Acute (2) Atrial fibrillation with slow ventricular response: A. fib with slow ventricular response. Bradycardia somewhat better more in the 50s to 60s today. Discontinue labetalol. May benefit from monitor at discharge. If bradycardia worsening or pauses, then may benefit from pacemaker. Additionally replace hypokalemia. Recheck magnesium. Noted mild increase in TSH, but normal free T4. Not likely contributing, likely subclinical hypothyroidism. Troponin EKG series not suggestive of acute VT. He has been chest pain-free, although new onset atrial fibrillation, with cardiovascular risk factors, no prior work-up, will benefit from additional assessment by stress testing at some point. TTE as above He is hypertensive, although this may be in response to bradycardia as discussed with him and his son. D-dimer is noted abnormal, with syncopal episodes will additionally assess CT PE protocol. Status: Acute (3) Atrial fibrillation, new onset: As above. Alcohol could be a trigger. As noted above, with new onset, with cardiovascular risk factors, no prior CAD work-up would benefit from additional nonurgent stress testing. Status: Acute (4) Falls: Accompanying syncopal episodes. As above. Status: Acute (5) C2 cervical fracture: [place] collar. Follow-up with orthopedics and office. Status: Acute (6) Hypertension: Labetalol was stopped. Continue lisinopril, indapamide. Cardiac diet monitor blood pressures. Status: Acute (7) Hypokalemia: Received replacement. Follow-up level. Replace hypomagnesemia. Status: Acute (8) Hypomagnesemia: Received replacement. Follow-up level. Status: Acute (9) Elevated TSH: He denies any other symptoms of hypothyroidism. Suspect subclinical hypothyroid. Not likely to be contributing to his symptoms. Status: Acute (10) Alcohol use: 2-3 alcoholic drinks daily, hard liquor. Certainly could contribute to development of new atrial relation. Encourage cessation. Monitor for withdrawal. Status: Acute (11) Elevated brain natriuretic peptide (BNP) level: 7738. Unclear etiology, although does not appear to have clear pulmonary issues on chest x-ray. D-dimer is abnormal, will additionally assess for possibility of PE with CTA. This may be secondary to new arrhythmia. Does not appear to be volume overloaded at this time. Unremarkable TTE. Status: Acute (12) Elevated d-dimer: Additional assessment by CTA, duplex lower extremities. If no clots noted, may be secondary to atrial fibrillation. Status: Acute Plan HLD: Continue statin Possible nycturia as per son recently moved to [place], now living alone. Attestations Medical Necessity Statement*: Continue admission for reassessment of syncopal episodes. Bradycardia. Coding Level of Care Code Acute Echocardiograph Tech for [facility] Fwd Diagnoses Recurrent syncope R55 Atrial fibrillation with slow ventricular response I48.91 Atrial fibrillation, new onset I48.91 Falls W19.XXXA C2 cervical fracture S12.100A Hypertension I10 Hypokalemia E87.6 Hypomagnesemia E83.42 Elevated TSH R79.89 Alcohol use Z72.89 Elevated brain natriuretic peptide (BNP) level R79.89 Elevated d-dimer R79.89
[2021-11-18] MEDS: hyDROXYzine 25 mg Capsule PO (22:44)
[2021-11-19] VITALS (10 sets, daily range): BP systolic 159–199; BP diastolic 88–111; PULSE 43–59; RESP 9–29; TEMP 36.4–36.8; O2SAT 94–97
[2021-11-19 05:55] LABS: Basophils # 0.1 10^3/uL (0.0-0.1); Basophils % 1.1 %; Eosinophils # 0.2 10^3/uL (0.0-0.8); Eosinophils % 2.2 %; Hematocrit 44.2 % (42.0-52.0); Hemoglobin 14.7 g/dL (11.7-16.6); Lymphocytes # 1.3 10^3/uL (0.8-4.8); Lymphocytes % 14.3 %; Mean Corpuscular HGB Conc 33.3 g/dL (30.0-36.0); Mean Corpuscular Hemoglobin 33.4 pg (28.0-34.0); Mean Corpuscular Volume 100.5 fl (80-94); Mean Platelet Volume 11.3 fL (7.4-10.4); Monocytes # 0.8 10^3/uL (0.2-0.9); Monocytes % 9.2 %; Neutrophils # 6.59 10^3/uL (1.8-7.7); Nucleated Red Blood Cells % 0 %; Platelet Count 212 10^3/cmm (130-400); Red Cell Distribution Width 14.3 % (12.1-15.1)
[2021-11-19 06:18] LABS: Alanine Aminotransferase 9 U/L (0-41); Albumin Level 3.3 g/dL (3.5-5.2); Alkaline Phosphatase 84 U/L (40-130); Blood Urea Nitrogen 14 mg/dL (8-23); Carbon Dioxide 28 mmol/L (22-29); Chloride 101 mmol/L (98-107); Globulin 2.8 g/dL (1.3-4.6); Glucose 80 mg/dL (65-115); Magnesium 1.9 mg/dL (1.7-2.3); Osmolality Calculated 289 mOsm/kg (285-295); Sodium 140 mmol/L (136-145); Total Bilirubin 1.3 mg/dL (0.15-1.2); Total Protein 6.1 g/dL (6.6-8.7)
[2021-11-19 06:21] LABS: Anion Gap 14.4 (5-19); Aspartate Amino Transferase 17 U/L (0-40); Potassium 3.4 mmol/L (3.5-5.1)
[2021-11-19] MEDS: montelukast sodium 10 mg Tablet PO (09:38)
[2021-11-19] MEDS: atorvastatin 40 mg Tablet 20 MG PO (09:38)
[2021-11-19] MEDS: lisinopril 20 mg Tablet PO (09:39)
[2021-11-19] MEDS: loratadine 10 mg Tablet PO (09:39)
[2021-11-19] MEDS: venlafaxine ER (24HR) 75 mg Capsule PO (09:39)
[2021-11-19] MEDS: potassium chloride ER 10 mEq Tablet PO (09:39)
[2021-11-19] MEDS: heparin 5,000 unit/mL INJ 1 mL 5000 UNIT SUBCUT (09:40)
[2021-11-19] MEDS: fluticasone nasal spray 16gm Btl 2 SPRAY INTRANASAL (09:59)
--- NOTE | 2021-11-19 16:44 | PC.NURSE ---
discharge instructions given and explained.ot and son verb understanding.discharged via w/c to exit at this time.son to drive pt home.
--- NOTE | 2021-11-19 19:43 | P.DS_ITS ---
Discharge Providers Date of Admission: 11/17/21 18:11 Date of Discharge: November 19, 2021 Attending Provider at Admission: Jovon White Attending Provider at Discharge: Jovon White Primary Care Provider: Vernell Siegel APN Diagnoses at Discharge Discharge Diagnosis (1) Recurrent syncope: Status: Acute (2) Atrial fibrillation with slow ventricular response: Status: Acute (3) Atrial fibrillation, new onset: Status: Acute (4) Falls: Status: Acute (5) C2 cervical fracture: Status: Acute (6) Hypertension: Status: Acute (7) Hypokalemia: Status: Acute (8) Hypomagnesemia: Status: Acute (9) Elevated TSH: Status: Acute (10) Alcohol use: Status: Acute (11) Elevated brain natriuretic peptide (BNP) level: Status: Acute (12) Elevated d-dimer: Status: Acute Reason for Visit Reason for Visit: BRADYCARDIA/ WEAKNESS Brief History: Pleasant 76-year-old gentleman recently living alone after his has moved to halfway, with history of HTN, HLD, alcohol intake 2-3 drinks in a day, reports history of intermittent fainting episodes for close to about a year, but recently worse, has been generally weak, and has fainted possibly 8-9 times, but feels like 49 in the last year.? His son mentions that episodes may happen more often at night when he tries to get up from bed possibly to urinate.? He does state that he gets lightheaded trying to get up.? He denies any chest pain or pressure.? He is not short of breath.? He has not had any fevers chills, cough or other respiratory issues.? Denies any history of heart disease, including no history of atrial fibrillation, or known history of CAD.? He was a former smoker but quit 40 years ago.? Denies any recent tick bites or any other unusual incidents. In ER he is noted hypertensive, blood pressure up to 214/122, currently 207/101.? Noted bradycardic, heart rates occasionally as low as 35-39 bpm at rest, otherwise 40s-50s.? Noted atrial fibrillation with slow ventricular response on EKG.? Aberrant conduction.? LVH.? Potassium 3.3.? Magnesium 1.5.? TSH 4.88, but free T4 0.9.? Troponin 37 baseline, 35.05 at 2 hours.? NT proBNP 7738.? Chest x-ray with low lung volumes, no acute findings.? Head CT with atrophic changes and ventriculomegaly appropriate for age.? C-spine CT with transverse hairline fracture at the base of the C2 vertebral body.? As per discussion with orthopedics Brandon J collar is placed, and he will be following up in outpatient office. Hospital Course Hospital Course He required several doses of hydralazine to help bring down blood pressure. With discontinuation of labetalol heart rates improved slightly to mostly for 50s A. fib with slow ventricular response, although briefly would still, down to as low as 34 bpm. Hypokalemia and hypomagnesemia were replaced, and likely due to diuretic. TSH noted minimally elevated at 4.88, but with normal free T4 0.9. Troponin EKG series not suggestive of acute ischemia. He remained chest pain- free. CTA showed no PE, left lower lobe pleural effusion. Multiple subcentimeter mediastinal lymph nodes. Venous duplex lower extremities negative for DVT. He was assessed with echocardiogram which showed normal ejection fraction, no diagnostic R WMA. Trace AVR. Orthostatic blood pressures were initially positive, possibly with contribution from hydralazine, 152/77 standing 107/71. After hydralazine discontinued orthostatics better, although hypertensive 199/106 laying to 190/91 standing. He remained asymptomatic while in the hospital. Was assessed by PT as well. He was feeling better and wanted to return home. His blood pressure overall has improved, down to 178/94, but will need further optimization. At discharge his lisinopril was increased to 30 mg daily. Labetalol is discontinued. Indapamide is continued with addition of potassium and magnesium supplements. Please follow-up with heart rates, blood pressures, electrolytes. Additionally he is set up with a 48-hour Holter monitor for further assessment while at home. Discussed also with his son. For now he is started on aspirin due to fall risk of bleeding with anticoagulation, however, once no longer having fall/syncopal episodes, please discuss with him consideration of anticoagulation for stroke risk reduction with atrial fibrillation. He is asked to continue Brandon J and follow-up with orthospine regarding hairline transverse C2 vertebral fracture. He is asked to discontinue alcohol intake. Physical Exam Narrative: Son accompanies him at bedside. Const: COMMON NORMALS: patient oriented x3 and alert GENERAL APPEARANCE: c ooperative ORIENTATION/CONSCIOUSNESS: Yes awake HENMT: COMMON NORMALS: oropharynx normal Neck/C-Spine: COMMON NORMALS: no JVD OTHER: Brandon J collar Resp: COMMON NORMALS: normal respiratory effort and clear to auscultation bilaterally AUSCULTATION: clear to auscultation bilaterally Cardio: COMMON NORMALS: no JVD, regular rhythm, S1 normal heart sound present, S2 normal heart sound present and No murmurs present (Cardio) RHYTHM: regular rhythm HEART SOUNDS: S1 normal heart sound present and S2 normal heart sound present GI: COMMON NORMALS: Normal to inspection, nondistended, normoactive bowel sounds present, Soft to palpation and non-tender PALPATION: Yes Soft to palpation Extremity: COMMON NORMALS: no joint enlargement and no pedal edema Neuro: COMMON NORMALS: patient oriented x3 and moves all extremities SENSOR IUM/ORIENTATION: Yes alert Skin: COMMON NORMALS: no rashes or lesions noted GENERAL SKIN EXAM: no rashes or lesions noted Discharge Data Studies Completed and Pending Completed Studies During Hospitalization Category Date Time Status CT cervical spin wo con* [id number] Stat Cat Scan 11/17/21 10:[address] head wo con* [id number] Stat Cat Scan 11/17/21 10:26 Completed CTA chest [CT angio chest PE protcl [id number]] Stat Cat Scan 11/17/21 14:12 Completed XR chest 1V portable [id number] Stat Exams 11/17/21 10:26 [place] [id number] Stat Ultrasound 11/17/21 14:12 Completed CV. echo wo/w contrast [id number] Stat Ultrasound 11/17/21 13:53 Completed Radiology Impressions Cervical Spine CT 11/17/21 10:26 IMPRESSION: 1. Apparent transverse hairline fracture the base of the C2 vertebral body. 2. Osteopenia and osteoarthritis ADDENDUM: 11/17/21 1214 Findings were discussed with Houston Martino at 11/17/2021 12:12 PM CDT. Chest X-Ray 11/17/21 10:26 IMPRESSION: 1. No acute findings. 2. Low lung volumes Head CT 11/17/21 10:26 IMPRESSION: 1. No acute intracranial abnormality. 2. Cerebral atrophic changes and ventriculomegaly appropriate for age Chest CTA 11/17/21 14:12 IMPRESSION: 1. Negative for pulmonary embolism. 2. Left lower lobe pleural effusion 3. Multiple subcentimeter mediastinal lymph nodes 4. Otherwise negative examination Laboratory Results WBC 9.0 10^3/uL (4.0-10.0) 11/19/21 04:49 RBC 4.40 10^6/uL (4.1-5.3) 11/19/21 04:49 Hgb 14.7 g/dL (11.7-16.6) 11/19/21 04:49 Hct 44.2 % (42.0-52.0) 11/19/21 04:49 MCV 100.5 fl (80-94) H 11/19/21 04:49 MCH 33.4 pg (28.0-34.0) 11/19/21 04:49 MCHC 33.3 g/dL (30.0-36.0) 11/19/21 04:49 RDW 14.3 % (12.1-15.1) 11/19/21 04:49 Plt Count 212 10^3/cmm (130-400) 11/19/21 04:49 MPV 11.3 fL (7.4-10.4) H 11/19/21 04:49 Neut % (Auto) 73.0 % 11/19/21 04:49 Lymph % (Auto) 14.3 % 11/19/21 04:49 [place] % (Auto) 9.2 % 11/19/21 04:49 Eos % (Auto) 2.2 % 11/19/21 04:49 Baso % (Auto) 1.1 % 11/19/21 04:49 Neut # (Auto) 6.59 10^3/uL (1.8-7.7) 11/19/21 04:49 Lymph # (Auto) 1.3 10^3/uL (0.8-4.8) 11/19/21 04:49 [place] # (Auto) 0.8 10^3/uL (0.2-0.9) 11/19/21 04:49 Eos # (Auto) 0.2 10^3/uL (0.0-0.8) 11/19/21 04:49 Baso # (Auto) 0.1 10^3/uL (0.0-0.1) 11/19/21 04:49 Nucleated RBC % (auto) 0 % 11/19/21 04:49 Nucleated RBCs # 0.0 /100WBC 11/19/21 04:49 D-Dimer 2.20 ug/mIFEU (0-0.59) H 11/17/21 10:28 Sodium 140 mmol/L (136-145) 11/19/21 04:49 Potassium 3.4 mmol/L (3.5-5.1) L 11/19/21 04:49 Chloride 101 mmol/L (98-107) 11/19/21 04:49 Carbon Dioxide 28 mmol/L (22-29) 11/19/21 04:49 Anion Gap 14.4 (5-19) 11/19/21 04:49 BUN 14 mg/dL (8-23) 11/19/21 04:49 Creatinine 0.7 mg/dL (0.7-1.2) 11/19/21 04:49 GFR Calculation Not Reportable 11/19/21 04:49 Glucose 80 mg/dL (65-115) 11/19/21 04:49 Calculated Osmolality 289 mOsm/kg (285-295) 11/19/21 04:49 Lactate 1.6 mmol/L (0.5-2.2) 11/17/21 10:28 Calcium 9.0 mg/dL (8.5-10.5) 11/19/21 04:49 Magnesium 1.9 mg/dL (1.7-2.3) 11/19/21 04:49 Total Bilirubin 1.3 mg/dL (0.15-1.2) H 11/19/21 04:49 AST 17 U/L (0-40) 11/19/21 04:49 ALT 9 U/L (0-41) 11/19/21 04:49 Alkaline Phosphatase 84 U/L (40-130) 11/19/21 04:49 Troponin T Baseline 37 ng/L (0-15) H 11/17/21 10:43 Troponin T 120 Minute 35.05 ng/L (0-15) H 11/17/21 12:38 Delta Troponin T -1.95 ABS# (0-10) L 11/17/21 12:38 Troponin T Hi Sens 6Hr 41.42 ng/L (0-15) H 11/17/21 16:58 Troponin T Hi Sens 6Hr Delta 4.42 ng/L (0-12) 11/17/21 16:58 C-Reactive Protein 8.7 mg/L (0.0-4.9) H 11/17/21 10:28 NT-Pro-B Natriuret Pep 7738 pg/mL (0-450) H 11/17/21 10:28 Total Protein 6.1 g/dL (6.6-8.7) L 11/19/21 04:49 Albumin 3.3 g/dL (3.5-5.2) L 11/19/21 04:49 Globulin 2.8 g/dL (1.3-4.6) 11/19/21 04:49 Procalcitonin 0.05 ng/mL (0-0.5) 11/17/21 10:28 TSH 4.88 uIU/mL (0.27-4.20) H 11/17/21 10:28 Free T4 0.90 ng/dL (0.82-1.77) 11/17/21 10:28 Coronavirus 229E (PCR) Not detected (NOT DETECT) 11/17/21 19:54 SARS-CoV-2 (PCR) Not detected (NOT DETECT) 11/17/21 19:54 Vitals Last Vital Signs Temp 98.3 F 11/19/21 16:45 Pulse 56 L 11/19/21 16:45 Resp 9 L 11/19/21 16:45 BP 178/109 11/19/21 16:45 Pulse Ox 94 11/19/21 16:45 O2 Del Method 11/19/21 15:46 Discharge Plan Discharge Patient Disposition: Home Condition: Stable Prescriptions: New lisinopril 30 mg tablet 30 mg PO DAILY Qty: 90 0RF potassium chloride 10 mEq tablet,ER particles/crystals 10 meq PO DAILY Qty: 90 0RF Slow-Mag 71.5 mg tablet,delayed release (DR/EC) 71.5 mg PO DAILY Qty: 30 0RF aspirin 81 mg tablet,delayed release (DR/EC) 81 mg PO DAILY Qty: 90 0RF Continued indapamide 2.5 mg Tablet 2.5 mg PO QAM montelukast 10 mg tablet 10 mg PO DAILY fluticasone propionate 50 mcg/actuation spray,suspension 2 spray INTRANASAL DAILY venlafaxine 75 mg capsule,extended release 24hr 75 mg PO DAILY Claritin 10 mg Tablet 10 mg PO DAILY cyclobenzaprine 5 mg tablet 5 mg PO BID PRN (Reason: Muscle Spasm) Zocor 40 mg tablet 40 mg PO DAILY Klor-Con M20 20 mEq tablet,ER particles/crystals 10 meq PO DAILY Discontinued labetalol 300 mg tablet 300 mg PO DAILY 90 Days Qty: 90 1RF lisinopril 10 mg tablet 10 mg PO DAILY Discharge Orders: Discharge Order (Routine); Ordered 11/19/21 Ordered By: Jovon White Other Ambulatory Orders: ECG holter monitor 48 hours (Routine) Timeframe: 1 Day Facility: [facility] - Location: Radiology Ordered By: Jovon White Referrals: CARDIOLOGY [Provider Group] - 2 weeks (Please call [facility] Saturday morning to schedule a hospital follow up appointment within 2 weeks. [phone]) Vernell Siegel APN [Primary Care Provider] - 4-7 days (Please call tomorrow morning to schedule a hospital follow up appointment within 1 week. ) Dave Grigsby DO [Physician] - 4-7 days (Please call tomorrow morning for a hospital follow up appointment with Dr. Grigsby within 1 week concerning fracture. ) Discharge Diet: Cardiac Discharge Activity: As per PT/OT instructions Patient Instructions: Lisinopril (By mouth), Potassium Chloride (By mouth), Aspirin (By mouth), Bradycardia (GEN), Hypertension (GEN), Fall Prevention (GEN) Activity Restrictions/Additional Instructions: Please rise slowly from laying to sitting and sitting to standing. In case you dizzy, please sit down or lie down immediately to prevent fainting and falling. Please have your primary doctor reassess your orthostatic blood pressure in office. Follow-up with your primary doctor and with cardiology regarding slow heart rate and to discuss results of the Holter monitor. Please discuss both with your primary doctor as well as with cardiology regarding atrial fibrillation and prevention of risk of stroke. Once you are not having frequent falls anymore you may benefit from having blood thinner medication to reduce risk of stroke with atrial fibrillation. Please avoid any alcohol. Alcohol may lead to development of abnormal heart rhythms, as well as leads to hypertension. Discussed with your primary doctor if you believe you may have difficulty quitting alcohol on your own. Please continue with Isac ross until you follow-up with orthopedic doctor in office for fracture of cervical vertebra. Discharge Attestations Time Spent in Discharge Care*: greater than 30 min Quality Metrics Clinical Quality Measures [ No reported AMI, CVA or VTE this stay] Coding Level of Care Code Acute Chg FW DC note Diagnoses Recurrent syncope R55 Atrial fibrillation with slow ventricular response I48.91 Atrial fibrillation, new onset I48.91 Falls W19.XXXA C2 cervical fracture S12.100A Hypertension I10 Hypokalemia E87.6 Hypomagnesemia E83.42 Elevated TSH R79.89 Alcohol use Z72.89 Elevated brain natriuretic peptide (BNP) level R79.89 Elevated d-dimer R79.89
--- NOTE | 2021-11-21 10:17 | DCPLANNER ---
Addendum entered by Delmy Petty 12/14/21 14:42: Patient had a follow up appointment with ortho - patient did not attend appointment. Addendum entered by Delmy Petty 11/24/21 13:49: Patient has a follow up appointment scheduled for Sunday, November 28, [address] at 9:[address] Grigsby. Clinic will call patient with appointment information. Original Note: manager mobility had message to schedule a follow up appointment for patient with ortho. manager mobility sent patients information to the front office staff at ortho. Patients information will be printed and reviewed. Clinic will call patient with appointment information.
== END 2021-11-19 16:46 | disposition short-term general hospital (02) | DRG 309 ==
LOC: ER 13:22 → MEDSURG 18:12
PROVIDERS: Admitting Provider Internal Medicine; Emergency Provider Emergency Medicine; PCP Nurse Practitioner Family; Visit Provider Internal Medicine
DX: I48.91 Unspecified atrial fibrillation (principal); I96 Gangrene, not elsewhere classified; S12.100A Unspecified displaced fracture of second cervical vertebra, initial encounter for closed fracture; X58.XXXA Exposure to other specified factors, initial encounter; I10 Essential (primary) hypertension; I95.1 Orthostatic hypotension; E87.6 Hypokalemia; E83.42 Hypomagnesemia; I45.10 Unspecified right bundle-branch block; R00.1 Bradycardia, unspecified; R94.6 Abnormal results of thyroid function studies; R29.6 Repeated falls; R79.89 Other specified abnormal findings of blood chemistry; R79.1 Abnormal coagulation profile; E78.5 Hyperlipidemia, unspecified; Z72.89 Other problems related to lifestyle; Z87.891 Personal history of nicotine dependence; L98.492 Non-pressure chronic ulcer of skin of other sites with fat layer exposed
CPT/HCPCS: 36415; 70450; 71045; 71275; 72125; 80053; 83605; 83735; 83880; 84145; 84439; 84443; 84484; 85025; 85378; 86140; 87635; 93005; 93970; 96365; 96366; 96372; 97161; 97530; 97760; 99213; 99291; C8929; J0360; J1644; J3475; L0174; Q9956; Q9967

== ENCOUNTER → 2021-11-24 12:54 | Outpatient (BNVA) | payer MEDICARE, BC, SELFPAY | PROVIDERS: PCP Nurse Practitioner Family; Visit Provider Surgery | DX: L98.492 Non-pressure chronic ulcer of skin of other sites with fat layer exposed (principal); I96 Gangrene, not elsewhere classified | CPT/HCPCS: 11042 ==

== ENCOUNTER → 2021-11-29 12:55 | Outpatient (BNVA) | payer MEDICARE, BC, SELFPAY | PROVIDERS: PCP Nurse Practitioner Family; Visit Provider Internal Medicine Cardiovascular Disease | DX: I49.8 Other specified cardiac arrhythmias (principal); I48.91 Unspecified atrial fibrillation; R55 Syncope and collapse | CPT/HCPCS: 93225 ==

== ENCOUNTER 2021-11-30 06:00 | Outpatient (RCR) | payer MEDICARE, BC, SELFPAY | END 2021-12-29 23:59 | disposition home or self-care (01) | LOC: TPT 06:00 | PROVIDERS: PCP Nurse Practitioner Family; Referring Provider Nurse Practitioner Family; Visit Provider Nurse Practitioner Family | DX: R42 Dizziness and giddiness (principal) | CPT/HCPCS: 97110; 97164 ==

== ENCOUNTER → 2022-01-09 12:48 | Outpatient (BNVA) | payer MEDICARE, BC, SELFPAY | PROVIDERS: PCP Nurse Practitioner Family; Visit Provider Internal Medicine Cardiovascular Disease | DX: I48.91 Unspecified atrial fibrillation (principal); R00.1 Bradycardia, unspecified; R55 Syncope and collapse; I10 Essential (primary) hypertension; Z87.891 Personal history of nicotine dependence; Z72.89 Other problems related to lifestyle | CPT/HCPCS: 99204 ==

== ENCOUNTER → 2022-04-09 15:16 | Outpatient (BNVA) | payer MEDICARE, BC, SELFPAY | PROVIDERS: PCP Nurse Practitioner Family; Visit Provider Nurse Practitioner Family | DX: M25.511 Pain in right shoulder (principal); M19.011 Primary osteoarthritis, right shoulder | CPT/HCPCS: 73030 ==

== ENCOUNTER 2022-05-07 13:03 | Emergency (ER) | payer MEDICARE, SELFPAY ==
[2022-05-07 13:06] VITALS: BMI 29.0
[2022-05-07 13:21] VITALS: BP 153/79; PULSE 63; RESP 16; TEMP 37.3; O2SAT 93
--- NOTE | 2022-05-07 13:58 | ED_ITS ---
Documented by User: TIFFANIE Montenegro 05/07/22 14:55 HPI - Fall General: Chief Complaint: Fall Stated Complaint: FALL WITH LACERATION Time Seen by Provider: 05/07/22 13:16 Source: patient Mode of arrival: EMS Limitations: no limitations History of Present Illness: Patient is a nice 77-year-old male who presents to ED today after he was sent here by his primary care provider for evaluation and treatment of a right forearm laceration that he sustained several days ago. Patient tells me he initially injured it approximately a week ago. He states it swelled up and then busted open 2 days ago. Patient's tetanus is up-to-date. He states he lacerated it following a fall. Patient states he falls frequently secondary to old age and alcohol use. Patient states his is in a jail. He has contemplated entering the jail because of the falls but cannot bring himself to do it and would like to stay at home at this time. He has no other complaints at this time apart from his forearm laceration. complaint: fall Onset (ago): day(s) Fall from: standing Fall witnessed: no Place fall occurred: home Loss of consciousness: None Prolonged down time: no Context: tripped/slipped and alcohol use Location of injury - extremities: Right: forearm Associated symptoms-after fall: Reports no associated symptoms and difficulty walking (chronic); Denies chest pain, headache(s), lightheadedness or neck pain Review of Systems Const: Denies: fever(s) Eyes: Denies: change in vision or blurry vision Card: Denies: chest pain, palpitations, lightheadedness, syncope or pre- syncope Resp: Denies: dyspnea GI: Denies: nausea or vomiting Musc: Reports: other (laceration to R forearm-states he does not have any pain); Denies: neck pain, back pain, extremity pain, extremity swelling, joint pain or joint swelling Neuro: Reports: difficulty walking (chronic); Denies: headache(s), numbness in extremities, weakness in extremities, sensory changes or dizziness [facility] ED PFSH: Medical History Depressed Hyperlipemia Hypertension Hypokalemia Rosacea Seasonal allergies Vitamin D deficiency Surgical History No pertinent past surgical history Family History Other No significant family history Social History Smoking and tobacco status: former smoker Quit status (tobacco): has quit using tobacco Former quit date comment: 40 years ago Alcohol intake: current Alcohol type: hard liquor Lives independently: Yes Household members: none Marital status: Marital status details: recently moved to a jail Physical Exam Const: COMMON NORMALS: no acute distress, average body habitus, patient oriented x3, no limitations, alert and well nourished GENERAL APPEARANCE: cooperative ORIENTATION/CONSCIOUSNESS: Yes awake, Yes oriented to person, Yes oriented to place and Yes oriented to time HENMT: COMMON NORMALS: normocephalic and atraumatic HEAD & SCALP: normal to inspection, normocephalic and atraumatic FACE & SINUS: normal facial exam Neck/C-Spine: COMMON NORMALS: full ROM CERVICAL SPINE: No Cervical spine tenderness and No step off deformity Resp: COMMON NORMALS: normal respiratory effort and clear to auscultation bilaterally AUSCULTATION: clear to auscultation bilaterally Cardio: COMMON NORMALS: regular rate and regular rhythm RATE: regular rate RHYTHM: regular rhythm Back/Pelvis: COMMON NORMALS: thoracic and lumbar spine normal to inspection, no thoracic nor lumbar tenderness and thoraco-lumbar ROM normal Extremity: COMMON NORMALS: full ROM, capillary refill normal, no joint enlargement, no clubbing, cyanosis or edema, no calf tenderness and no pedal edema GENERAL: Yes normal exam except as noted RIGHT UPPER EXTREMITY: Yes lower arm OTHER: pt has a large 6cm laceration to volar R forearm; laceration has scraped subcutaneous/adipose tissue from the muscle fascia (fascia intact); the large skin flap is obviously old and showing signs of re-vascularization and is viable; there is a large underlying defect/empty space present Neuro: COMMON NORMALS: patient oriented x3, moves all extremities, no focal motor deficits and no sensory deficits noted SENSORIUM/ORIENTATION: Yes alert, Yes oriented to person, Yes oriented to place and Yes oriented to time Skin: NARRATIVE SKIN EXAM: patient has countless areas of ecchymosis to bilateral UEs in varying stages of healing Procedures Laceration Laceration 1: Site: upper extremity Side (If applicable): right Size (cm): 6.0 Description: linear and flap Depth: simple, single layer Local Anesthetic: lidocaine 1% Amount of anesthesia used (mL): 3.0 Pre-repair: wound explored and irrigated extensively Skin layer closed with: nylon Size (cm): 4-0 Number of sutures: 3 Technique: simple, interrupted (very loosely approximated) Course Vital Signs: Vital signs: Vital Signs Temperature 99.2 F 05/07/22 13:21 Pulse Rate 63 05/07/22 13:21 Respiratory Rate 16 05/07/22 13:21 Blood Pressure 153/79 05/07/22 13:21 Pulse Oximetry 93 05/07/22 13:21 Oxygen Delivery Me thod 05/07/22 13:21 MDM - Fall Medical Decision Making Patient's tetanus is up-to-date. Wound is at least 48 hours old and, according to patient history, could be as old as a week. Due to the degree/extent of the laceration it had to be repaired on some level however the risk of infection is substantial due to his delay in care. Wound was copiously irrigated with almost 2L of fluid. Skin edges were loosely tacked down to promote some level of healing but allowing drainage to occur. He was given IM Ancef and will be placed on Keflex at home. Recommend close follow up with his PCP. Return to ED precautions given. Spoke to Dr. Park in regards to patient- he agrees with care plan for patient. Discharge Plan Discharge Patient Disposition: Home Clinical Impression: Laceration of skin with delay in treatment Condition: Stable Prescriptions: New cephalexin 500 mg capsule 500 mg PO Q6H 7 Days Qty: 28 0RF No Action lisinopril 40 mg tablet 40 mg PO DAILY Qty: 90 1RF indapamide 2.5 mg Tablet 2.5 mg PO QAM montelukast 10 mg tablet 10 mg PO DAILY venlafaxine 75 mg capsule,extended release 24hr 75 mg PO DAILY Zocor 40 mg tablet 40 mg PO DAILY potassium chloride 10 mEq tablet,ER particles/crystals 10 meq PO DAILY Qty: 90 0RF fluticasone propionate 50 mcg/actuation spray,suspension 2 spray INTRANASAL DAILY PRN Claritin 10 mg tablet 10 mg PO DAILY PRN Discharge Orders: Discharge ED (Routine); Ordered 05/07/22 Ordered By: Heidi Nagel Referrals: Vernell Siegel APN [Primary Care Provider] - Activity Restrictions/Additional Instructions: As we discussed you need to fill your antibiotics and start them immediately. Due to the delay in care for your laceration, it had to be very loosely approximated and will take an extra long time to heal. Wound will drain-usually this will be clear/yellow in color and will be fairly normal for your wound. You need to follow up with primary care regardless so they can monitor healing and decide when to remove sutures. You need to seek medical re-evaluation sooner if your wound starts draining purulent material (pus like) or begins feeling red or hot or if you notice red streaking up your arm or fevers. Coding Level of Care Code ED Operations Intelligence Superintendent for [facility] Documented by User: Renny Park DO 05/07/22 15:47 HPI - Fall General: Chief Complaint: Fall Stated Complaint: FALL WITH LACERATION Time Seen by Provider: 05/07/22 13:16 [facility] ED PFSH: Medical History Depressed Hyperlipemia Hypertension Hypokalemia Rosacea Seasonal allergies Vitamin D deficiency Surgical History No pertinent past surgical history Family History Other No significant family history Social History Smoking and tobacco status: former smoker Quit status (tobacco): has quit using tobacco Former quit date comment: 40 years ago Alcohol intake: current Alcohol type: hard liquor Lives independently: Yes Household members: none Marital status: Marital status details: recently moved to a jail Course Vital Signs: Vital signs: Vital Signs Temperature 99.2 F 05/07/22 13:21 Pulse Rate 63 05/07/22 13:21 Respiratory Rate 16 05/07/22 13:21 Blood Pressure 153/79 05/07/22 13:21 Pulse Oximetry 93 05/07/22 13:21 Oxygen Delivery Me thod 05/07/22 13:21 MDM - Fall Medical Decision Making Patient's tetanus is up-to-date. Wound is at least 48 hours old and, according to patient history, could be as old as a week. Due to the degree/extent of the laceration it had to be repaired on some level however the risk of infection is substantial due to his delay in care. Wound was copiously irrigated with almost 2L of fluid. Skin edges were loosely tacked down to promote some level of healing but allowing drainage to occur. He was given IM Ancef and will be placed on Keflex at home. Recommend close follow up with his PCP. Return to ED precautions given. Spoke to Dr. Park in regards to patient- he agrees with care plan for patient. Chart reviewed and patient discussed with midlevel. Agree with assessment and plan. Discharge Plan Discharge Patient Disposition: Home Clinical Impression: Laceration of skin with delay in treatment Condition: Stable Prescriptions: New cephalexin 500 mg capsule 500 mg PO Q6H 7 Days Qty: 28 0RF No Action lisinopril 40 mg tablet 40 mg PO DAILY Qty: 90 1RF indapamide 2.5 mg Tablet 2.5 mg PO QAM montelukast 10 mg tablet 10 mg PO DAILY venlafaxine 75 mg capsule,extended release 24hr 75 mg PO DAILY Zocor 40 mg tablet 40 mg PO DAILY potassium chloride 10 mEq tablet,ER particles/crystals 10 meq PO DAILY Qty: 90 0RF fluticasone propionate 50 mcg/actuation spray,suspension 2 spray INTRANASAL DAILY PRN Claritin 10 mg tablet 10 mg PO DAILY PRN Discharge Orders: Discharge ED (Routine); Ordered 05/07/22 Ordered By: Heidi Nagel Referrals: Vernell Siegel APN [Primary Care Provider] - Activity Restrictions/Additional Instructions: As we discussed you need to fill your antibiotics and start them immediately. Due to the delay in care for your laceration, it had to be very loosely approximated and will take an extra long time to heal. Wound will drain-usually this will be clear/yellow in color and will be fairly normal for your wound. You need to follow up with primary care regardless so they can monitor healing and decide when to remove sutures. You need to seek medical re-evaluation sooner if your wound starts draining purulent material (pus like) or begins feeling red or hot or if you notice red streaking up your arm or fevers. Coding Level of Care Code ED Operations Intelligence Superintendent for [employer]
--- NOTE | 2022-05-07 14:16 | PC.NURSE ---
wound was flushed with 1500 mL of normal saline. wound appears clean
[2022-05-07] MEDS: ceFAZolin 1,000 MG in water for injection-sterile 2.5 ML 2.5 MG IM (14:53)
== END 2022-05-07 14:58 | disposition home or self-care (01) ==
PROVIDERS: Emergency Provider Physician Assistant; PCP Nurse Practitioner Family
DX: S51.811A Laceration without foreign body of right forearm, initial encounter (principal); W19.XXXA Unspecified fall, initial encounter; E78.5 Hyperlipidemia, unspecified; I10 Essential (primary) hypertension; Z87.891 Personal history of nicotine dependence
CPT/HCPCS: 12002; 96372; 99284; J0690